=== PATIENT | female | born 1975 | race Caucasian/White ===

== ENCOUNTER → 2016-09-16 | Outpatient (CLI) | payer BC ==
[~2016-09-16] MED LIST: GLUC1CAP33 PO; LEVO25TA5 PO; OMEG10007 PO; SERT25TA PO; SERT50TA PO
== END | disposition home or self-care (01) ==
LOC: C.PAPS 11:26
PROVIDERS: ATTEND Obstetrics & Gynecology
DX: Z01.419 Encounter for gynecological examination (general) (routine) without abnormal findings (principal)

== ENCOUNTER → 2016-09-16 | Outpatient (CLI) | payer BC ==
[2016-09-16 09:43] LABS: BASO % 0.6 %; BASO ABS # 0.02 K/uL (0-0.2); COMPLETE YES; EOS % 4.2 %; HEMATOCRIT 43.2 % (37-47); LYMPH % 40.2 %; LYMPH ABS # 1.25 K/uL (1.2-3.4); MEAN CORPUSCULAR HEMOGLOBIN 31.3 pg (25-34); MEAN CORPUSCULAR HGB CONC 34.7 g/dl (32-36); MEAN PLATELET VOLUME 10.4 fL (7.4-10.4); MONO % 10.3 %; NEUT % 44.7 %; PLATELET COUNT 193 K/uL (130-400); WHITE BLOOD COUNT 3.11 K/uL (4.8-10.8)
[2016-09-16 10:05] LABS: ALKALINE PHOSPHATASE 84 U/L (45-117); ALT/SGPT 20 U/L (12-78); AST/SGOT 15 U/L (15-37); BLOOD UREA NITROGEN 16 mg/dl (7-18); BUN/CREATININE RATIO 17.2 (10-20); CALCIUM 8.5 mg/dl (8.5-10.1); CARBON DIOXIDE 29 mmol/L (21-32); CHLORIDE 108 mmol/L (98-107); CREATININE 0.91 mg/dl (0.60-1.20); GLUCOSE 88 mg/dl (70-99); HDL CHOLESTEROL 70 mg/dl; POTASSIUM 3.7 mmol/L (3.5-5.1); SODIUM 143 mmol/L (136-145)
[2016-09-16 10:16] LABS: ALB/GLOB RATIO 1.6 (0.9-2); CHOLESTEROL 167 mg/dl (0-200); CHOLESTEROL/HDL RATIO 2.4; LDL CHOLESTEROL CALCULATED 84 mg/dl; TRIGLYCERIDES 64 mg/dl (0-150); VERY LOW DENSITY LIPOPROT CALC 13 mg/dl
== END | disposition home or self-care (01) ==
LOC: C.LAB1850 07:16
PROVIDERS: ATTEND Internal Medicine
DX: R00.2 Palpitations (principal)

== ENCOUNTER → 2016-11-03 | Outpatient (CLI) | payer BC ==
[2016-11-03 17:34] LABS: BASO % 0.9 %; BASO ABS # 0.04 K/uL (0-0.2); COMPLETE YES; EOS % 2.6 %; IG% 0.2 %; LYMPH ABS # 1.77 K/uL (1.2-3.4); MEAN CELL VOLUME 91.5 fL (80-100); MEAN CORPUSCULAR HGB CONC 33.9 g/dl (32-36); MEAN PLATELET VOLUME 10.4 fL (7.4-10.4); MONO % 6.8 %; NEUT % 50.5 %; PLATELET COUNT 227 K/uL (130-400); RED BLOOD COUNT 4.81 M/uL (4.2-5.4); WHITE BLOOD COUNT 4.54 K/uL (4.8-10.8)
[2016-11-03 18:13] LABS: THYROID STIMULATING HORMONE 2.93 uIu/ml (0.300-4.500)
== END | disposition home or self-care (01) ==
LOC: C.LAB1850 16:09
PROVIDERS: ATTEND Internal Medicine
DX: D72.819 Decreased white blood cell count, unspecified (principal); E03.9 Hypothyroidism, unspecified

== ENCOUNTER → 2016-12-23 | Outpatient (CLI) | payer BC ==
--- NOTE | 2016-12-23 13:30 | MAMMOGRAPHY REPORT ---
BILATERAL DIGITAL SCREENING MAMMOGRAM TOMOSYNTHESIS WITH CAD: 12/23/2016 CLINICAL HISTORY: Routine screening. TECHNIQUE: Breast tomosynthesis in addition to standard 2D mammography was performed. Current study was also evaluated with a Computer Aided Detection (CAD) system. COMPARISON: Comparison is made to exams dated: 12/20/2015 mammogram, 12/15/2014 mammogram, 10/21/2013 m ammogram, and 02/20/2006 mammogram - [facility]. BREAST COMPOSITION: The tissue of both breasts is heterogeneously dense, which may obscure small mas ses. FINDINGS: The parenchymal pattern is similar to prior mammograms. No suspicious mass, architectural distortion or cluster of microcalcifications is seen. IMPRESSION: ACR BI-RADS CATEGORY 1: NEGATIVE There is no mammographic evidence of malignancy. A 1 year screening mammogram is recommended. The pa tient will receive written notification of the results. Approximately 10% of breast cancers are not detected with mammography. A negative mammographic report should not delay biopsy if a clinically suggestive mass is present. Kendal Velazquez M.D. ay/:12/23/2016 08:10:34 Polymerization Oven Operator: Vitor MONDRAGON(R)(M), [facility] letter sent: Normal 1/2 BI-RADS Code: ACR BI-RADS Category 1: Negative
== END | disposition home or self-care (01) ==
LOC: C.MAMM 07:24
PROVIDERS: ATTEND Obstetrics & Gynecology
DX: Z12.31 Encounter for screening mammogram for malignant neoplasm of breast (principal)

== ENCOUNTER → 2017-01-09 | Outpatient (CLI) | payer BC ==
[2017-01-09 10:43] LABS: THYROID STIMULATING HORMONE 1.29 uIu/ml (0.300-4.500)
== END | disposition home or self-care (01) ==
LOC: C.LAB 09:13
PROVIDERS: ATTEND Internal Medicine
DX: E03.9 Hypothyroidism, unspecified (principal)

== ENCOUNTER → 2017-01-24 | Outpatient (CLI) | payer BC ==
[2017-01-24 11:03] LABS: CHOLESTEROL/HDL RATIO 2.4
== END | disposition home or self-care (01) ==
LOC: C.LAB 08:35
PROVIDERS: ATTEND Internal Medicine
DX: Z13.220 Encounter for screening for lipoid disorders (principal); Z13.1 Encounter for screening for diabetes mellitus

== ENCOUNTER 2017-03-13 12:51 | Emergency (ER) | payer BC ==
[~2017-03-13] VITALS: Ht 172.7 cm; Wt 74.2 kg
[~2017-03-13 12:51] MED LIST changes: -GLUC1CAP33 PO; -LEVO25TA5 PO; -OMEG10007 PO; -SERT25TA PO
[2017-03-13 13:13] VITALS: TEMP 37.3; Ht 172.7 cm; Wt 74.2 kg
[2017-03-13] MEDS ORDERED: SODIUM CHLORIDE 0.9% 1000ML 1,000 ML IV STA ×2 (13:24)
[2017-03-13] MEDS ORDERED: LEVO25TA5 PO (13:52)
[2017-03-13] MEDS ORDERED: GLUC1CAP33 PO (13:52)
[2017-03-13] MEDS ORDERED: OMEG10007 PO (13:52)
[2017-03-13] MEDS ORDERED: SERT25TA PO (13:52)
[2017-03-13 14:04] LABS: EOS % 0.7 %; HEMATOCRIT 42.4 % (37-47); LYMPH % 23.8 %; MEAN CELL VOLUME 89.3 fL (80-100); MEAN CORPUSCULAR HEMOGLOBIN 30.5 pg (25-34); MEAN CORPUSCULAR HGB CONC 34.2 g/dl (32-36); MEAN PLATELET VOLUME 9.8 fL (7.4-10.4); MONO % 8.4 %; NEUT % 66.2 %; PLATELET COUNT 217 K/uL (130-400); RED BLOOD COUNT 4.75 M/uL (4.2-5.4); WHITE BLOOD COUNT 4.03 K/uL (4.8-10.8)
[2017-03-13 14:05] LABS: BASO % 0.7 %; BASO ABS # 0.03 K/uL (0-0.2); COMPLETE YES; IG% 0.2 %; LYMPH ABS # 0.96 K/uL (1.2-3.4)
[2017-03-13 14:13] LABS: INR 1.1 (0.9-1.1); PROTHROMBIN TIME (PATIENT) 11.5 SECONDS (9.0-12.0)
[2017-03-13 14:16] LABS: MANUAL MICROSCOPIC REQUIRED? YES; URINE APPEARANCE CLEAR (CLEAR); URINE BILIRUBIN NEG (NEG); URINE COLOR RED; URINE NITRITE NEG (NEG); URINE SPECIFIC GRAVITY <= 1.005 (1.000-1.030); UROBILINOGEN NEG (NEG)
[2017-03-13 14:18] LABS: REVIEW REQ? NO
[2017-03-13 14:22] LABS: BUN/CREATININE RATIO 14.7 (10-20); CALCIUM 8.7 mg/dl (8.5-10.1); CREATININE 0.73 mg/dl (0.60-1.20); POTASSIUM 3.6 mmol/L (3.5-5.1)
[2017-03-13 14:25] LABS: URINE BACTERIA NEG (NEG); URINE RBC >30 /hpf (0-4); URINE WBC 0 /hpf (0-5)
[2017-03-13 14:25] LABS: ALB/GLOB RATIO 1.7 (0.9-2)
[2017-03-13 14:34] LABS: PREG INTERNAL NEGATIVE QC NEG CLEAR BACKGROUND; PREG INTERNAL POSITIVE QC POS CONTROL LINE
--- NOTE | 2017-03-13 15:04 | DIAGNOSTIC IMAGING REPORT ---
PELVIC ULTRASOUND CLINICAL HISTORY: Heavy irregular menses. COMPARISON STUDY: None. TECHNIQUE: Transabdominal and transvaginal sonography of the pelvis was performed. FINDINGS: The uterus measures 10.7 x 4.6 x 6.2 cm. Endometrium measures 8 mm in thickness. A few nabothian cysts are noted. There are no significant uterine abnormalities. The right ovary measures 2.4 x 1.1 x 1.8 cm and the left measures 3.2 x 1.4 x 1.6 cm. Trace free fluid is likely physiologic. Color flow is identified within each ovary. IMPRESSION: 1. Unremarkable sonographic appearance of the uterus and ovaries. Endometrial thickness of 8 mm. 2. Trace fluid within the pelvis which is likely physiologic. Electronically signed by: Maximiliano Doty M.D. 03/13/2017 3:03 PM Dictated Date/Time: 03/13/2017 3:01 PM
--- NOTE | 2017-03-13 15:57 | EMERGENCY ROOM VISIT NOTE ---
ED Visit Note First contact with patient: 13:08 CHIEF COMPLAINT: Heavy vaginal bleeding times one day HISTORY OF PRESENT ILLNESS: Patient is a Ab1 41-year-old white female patient who presents the emergency department for heavy vaginal bleeding times one day. She has had irregular periods for the last 3-4 years. She has been followed by Dr. Yost for this. Patient actually reports going without a menstrual cycle for 4 months, and so she got a period in January. It started February 14, and that it is February 28. Flow was heavy, but manageable. Patient denies any significant pain or cramping with her menses. Patient reports that she got her period again 2 days ago. Today, the bleeding wasn't very brisk. She is wearing T a bump and a pad as backup. She states in the last 5-6 hours she has used 3 tampons and 5 pads. She is bleeding around the tampon, but not saturating a pad. She denies a significant pain. No lightheadedness or dizziness. No chest pain, palpitations or shortness of breath. She denies that she could be . She had been followed by her PCP, Dr. Olmedo, she had been feeling fatigued and was slightly hypothyroid. She started Synthroid 25 g daily in October. She did have some blood work recently, to check her thyroid functions, which were normal. Patient is not taking any aspirin or blood thinning medications. She has not tried using any ibuprofen. REVIEW OF SYSTEMS: Review of systems as per HPI. All other systems reviewed were negative. 10 systems reviewed. PMH: Electronic medical records are reviewed and summarized as above/below. See Problem List. SOCIAL HISTORY: Patient lives at home with her and children. Employed. Nonsmoker. PHYSICAL EXAM: Vital Signs: Reviewed Nurse's notes. CONSTITUTIONAL: Patient is a pleasant, well-appearing 41-year-old white female who is awake and alert and in no acute distress. EYES: Pupils equal, round, reactive to light and accommodation. EOMs intact without nystagmus. Sclera are anicteric. Conjunctivae are pink. ENT: Tympanic membranes intact, with normal landmarks. External canals are clear. Oral and nasopharynx are clear. Mucous membranes are moist, no lesions , tongue and gums appear normal. NECK: No bruits auscultated. Supple without lymphadenopathy. No thyromegaly. No meningeal signs. Full active range of motion without discomfort. CARDIOVASCULAR: Regular rate and rhythm, with normal S1 and S2, no murmur or gallop or rub is heard. No carotid bruits auscultated. No JVD. Peripheral pulses easily palpable. RESPIRATORY: Breath sounds equal and clear to auscultation without wheezes, rales, or rhonchi heard. Full and equal chest expansion without accessory muscle use or retractions. ABDOMEN: Bowel sounds are present. Abdomen is soft, nontender and nondistended. No guarding or rebound. No masses appreciated. INTEGUMENTARY: No lesions or rash, normal skin turgor. LYMPH: No lymphadenopathy. EMERGENCY DEPARTMENT COURSE: The patient was seen and evaluated as above. Her old records are reviewed. IV lock was initiated and she was hydrated with normal saline solution. CBC with differential, coags, CMP, urinalysis and qualitative hCG were performed. Pelvic ultrasound was obtained. Laboratory studies noted a normal H&H at 14 and 42, platelets and coags are normal. Electrolytes and liver functions are within normal limits. test is negative. Urinalysis shows blood only left, likely contamination from her menses. Pelvic ultrasound was obtained, findings are as noted below. All laboratory and diagnostic imaging studies were reviewed with the patient and her spouse, and discussed with Dr. Schulte. I did review the patient with Dr. Bundy with [facility]. Her recommendation was ibuprofen, and follow up with Dr. Yost in the office. She recommended against Aygestin taper at this time as the patient has never had an endometrial biopsy. This was discussed with the patient and she expressed understanding. Bleeding precautions were outlined. Patient was encouraged to contact [facility] if she has any worsening symptoms. 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 Differential diagnoses entertained included perimenopause, anemia, , ectopic , coagulopathy, mass or malignancy, among others. Medication reconciliation: I attest that I have personally reviewed the patient' s current medication list. Blood pressure screening : Patient was found to have normal blood pressure on screening and does not require follow-up. PELVIC ULTRASOUND CLINICAL HISTORY: Heavy irregular menses. COMPARISON STUDY: None. TECHNIQUE: Transabdominal and transvaginal sonography of the pelvis was performed. FINDINGS: The uterus measures 10.7 x 4.6 x 6.2 cm. Endometrium measures 8 mm in thickness. A few nabothian cysts are noted. There are no significant uterine abnormalities. The right ovary measures 2.4 x 1.1 x 1.8 cm and the left measures 3.2 x 1.4 x 1.6 cm. Trace free fluid is likely physiologic. Color flow is identified within each ovary. IMPRESSION: 1. Unremarkable sonographic appearance of the uterus and ovaries. Endometrial thickness of 8 mm. 2. Trace fluid within the pelvis which is likely physiologic. Problem List Medical Problems: (1) Anxiety State Nos Status: Chronic (2) Hypothyroidism, Unspecified Status: Chronic (3) Nonrheumatic Mitral (Valve) Prolapse Status: Chronic Current/Historical Medications Scheduled Fish Oil (Malden-3), 1 CAP PO DAILY Glucosamine-Chondroitin (Glucosamine & Chondroitin 500-400 mg), 1 CAP PO DAILY Levothyroxine Sodium (Levothyroxine Sodium), 1 TAB PO DAILY Sertraline (Zoloft), 25 MG PO DAILY Allergies Coded Allergies: No Known Allergies (Verified , 03/13/17) Vital Signs Date Time Temp Pulse Resp B/P (MAP) Pulse Ox O2 Delivery O2 Flow Rate FiO2 03/13/17 16:11 78 20 137/62 100 03/13/17 15:10 77 20 117/61 99 Room Air 03/13/17 13:13 37.3 76 20 148/86 100 Room Air 03/13/17 13:01 37.3 76 20 100 Room Air Laboratory Results 03/13/17 13:50 Red Blood Count 4.75, Mean Corpuscular Volume 89.3, Mean Corpuscular Hemoglobin 30.5, Mean Corpuscular Hemoglobin Concent 34.2, Mean Platelet Volume 9.8, Neutrophils (%) (Auto) 66.2, Lymphocytes (%) (Auto) 23.8, Monocytes (%) (Auto) 8.4, Eosinophils (%) (Auto) 0.7, Basophils (%) (Auto) 0.7, Neutrophils # (Auto) 2.66, Lymphocytes # (Auto) 0.96, Monocytes # (Auto) 0.34, Eosinophils # (Auto) 0.03, Basophils # (Auto) 0.03 03/13/17 13:50 Test 03/13/17 13:05 03/13/17 13:50 Urine Color RED Urine Appearance CLEAR (CLEAR) Urine pH 7.0 (4.5-7.5) Urine Specific [place] <= 1.005 (1.000-1.030) Urine Protein NEG (NEG) Urine Glucose (UA) NEG (NEG) Urine Ketones NEG (NEG) Urine Occult Blood 3+ (NEG) Urine Nitrite NEG (NEG) Urine Bilirubin NEG (NEG) Urine Urobilinogen NEG (NEG) Urine Leukocyte Esterase NEG (NEG) Urine RBC >30 /hpf (0-4) Urine WBC 0 /hpf (0-5) Urine Epithelial Cells 0-5 /lpf (0-5) Urine Bacteria NEG (NEG) White Blood Count 4.03 K/uL (4.8-10.8) Red Blood Count 4.75 M/uL (4.2-5.4) Hemoglobin 14.5 g/dL (12.0-16.0) Hematocrit 42.4 % (37-47) Mean Corpuscular Volume 89.3 fL (80-100) Mean Corpuscular Hemoglobin 30.5 pg (25-34) Mean Corpuscular Hemoglobin Concent 34.2 g/dl (32-36) Platelet Count 217 K/uL (130-400) Mean Platelet Volume 9.8 fL (7.4-10.4) Neutrophils (%) (Auto) 66.2 % Lymphocytes (%) (Auto) 23.8 % Monocytes (%) (Auto) 8.4 % Eosinophils (%) (Auto) 0.7 % Basophils (%) (Auto) 0.7 % Neutrophils # (Auto) 2.66 K/uL (1.4-6.5) Lymphocytes # (Auto) 0.96 K/uL (1.2-3.4) Monocytes # (Auto) 0.34 K/uL (0.11-0.59) Eosinophils # (Auto) 0.03 K/uL (0-0.5) Basophils # (Auto) 0.03 K/uL (0-0.2) RDW Standard Deviation 42.3 fL (36.4-46.3) RDW Coefficient of Variation 12.9 % (11.5-14.5) Immature Granulocyte % (Auto) 0.2 % Immature Granulocyte # (Auto) 0.01 K/uL (0.00-0.02) Prothrombin Time 11.5 SECONDS (9.0-12.0) Prothromb Time International Ratio 1.1 (0.9-1.1) Activated Partial Thromboplast Time 26.8 SECONDS (21.0-31.0) Partial Thromboplastin Ratio 1.0 Anion Gap 8.0 mmol/L (3-11) Est Creatinine Clear Calc Drug Dose 100.2 ml/min Estimated GFR () 116.9 Estimated GFR (Non- 100.9 BUN/Creatinine Ratio 14.7 (10-20) Calcium Level 8.7 mg/dl (8.5-10.1) Total Bilirubin 0.4 mg/dl (0.2-1) Aspartate Amino Transf (AST/SGOT) 10 U/L (15-37) Alanine Aminotransferase (ALT/SGPT) 14 U/L (12-78) Alkaline Phosphatase 80 U/L (45-117) Total Protein 6.7 gm/dl (6.4-8.2) Albumin 4.2 gm/dl (3.4-5.0) Globulin 2.5 gm/dl (2.5-4.0) Albumin/Globulin Ratio 1.7 (0.9-2) Human Chorionic Gonadotropin, Qual NEG (NEG) Medications Administered Medications (Trade) Dose Ordered Sig/Bibiana Route Start Time Stop Time Status Last Admin Dose Admin Sodium Chloride 1,000 ml @ 999 mls/hr Q1H1M STAT IV 03/13/17 13:24 03/13/17 14:24 DC 03/13/17 13:58 999 MLS/HR Sodium Chloride 1,000 ml @ 250 mls/hr Q4H STAT IV 03/13/17 13:24 03/13/17 16:32 DC 03/13/17 13:58 250 MLS/HR Departure Information Impression Primary Impression: Vaginal bleeding Referrals Gene Olmedo M.D. (PCP) Patient Instructions My [facility] Additional Instructions Ibuprofen(Motrin, Advil) may be used for fever or pain. Use 600mg every six hours as needed. Take with food. Avoid using more than 2400mg in a 24 hour period. Do not use 2400mg per day for more than three consecutive days without physician direction. Prolonged inappropriate use can lead to stomach upset or ulcers. (AND/OR) Acetaminophen(Tylenol) may be used for fever or pain. Use 1000mg every six hours as needed. Avoid using more than 3000mg in a 24 hour period. Activity as tolerated. Drink plenty of fluids. Diet as tolerated. Follow up with [facility] next week. Return to the ED for worsening pain, heavier bleeding (soaking a pad in less than an hour, passing clots larger than your fist), lightheadedness, dizziness, passing out, worsening of your condition or as needed.
[2017-03-13 16:11] VITALS: BP 137/62; PULSE 78; O2SAT 100
== END 2017-03-13 16:12 | disposition home or self-care (01) ==
LOC: C.EDB 12:52 → C.EDA 16:12
DX: N93.9 Abnormal uterine and vaginal bleeding, unspecified (principal); F41.9 Anxiety disorder, unspecified; E03.9 Hypothyroidism, unspecified; I34.1 Nonrheumatic mitral (valve) prolapse

== ENCOUNTER → 2017-04-10 | Outpatient (CLI) | payer BC ==
[~2017-04-10] MED LIST changes: +GLUC1CAP33 PO; +LEVO25TA5 PO; +OMEG10007 PO; +SERT25TA PO; -SERT50TA PO
== END | disposition home or self-care (01) ==
LOC: C.LAB1850 15:53
PROVIDERS: ATTEND Internal Medicine
DX: E03.9 Hypothyroidism, unspecified (principal)

== ENCOUNTER → 2017-04-28 | Outpatient (CLI) | payer BC | END | disposition home or self-care (01) | LOC: C.PATHSPEC 15:53 | PROVIDERS: ATTEND Obstetrics & Gynecology | DX: N92.6 Irregular menstruation, unspecified (principal) ==

== ENCOUNTER → 2017-09-18 | Outpatient (CLI) | payer OTHER ==
--- NOTE | 2017-09-18 10:07 | DIAGNOSTIC IMAGING REPORT ---
THYROID ULTRASONOGRAPHY CLINICAL HISTORY: Hypothyroidism COMPARISON STUDY: No previous studies for comparison. FINDINGS: The right lobe of thyroid measures 49 x 13 x 12 mm. Left lobe of thyroid measures 40 x 8 x 10 mm. No thyroid nodules are visualized. IMPRESSION: Normal thyroid ultrasonography. Electronically signed by: Bronson Pereira M.D. 09/18/2017 10:06 AM Dictated Date/Time: 09/18/2017 10:05 AM
--- NOTE | 2017-09-18 10:09 | DIAGNOSTIC IMAGING REPORT ---
GALLBLADDER-ABD LIMITED CLINICAL HISTORY: 42 years-old Female presenting with GALLBLADDER POLYPS;HYPOTHYROIDISM. TECHNIQUE: Real-time grayscale and limited color Doppler ultrasound imaging of the abdomen limited to the right upper quadrant was performed. COMPARISON: 10/12/2014. FINDINGS: Pancreas: Visualized portions of the pancreatic head and body normal. Liver: Normal echogenicity and echotexture. No sonographic evidence of hepatic mass. Biliary: No intrahepatic biliary ductal dilatation. Common bile duct measures up to 2 mm in diameter. Gallbladder: 2 mm hyperechogenic nonmobile focus along the gallbladder wall, likely cholesterol polyp. No evidence of gallstones, gallbladder wall thickening, gallbladder distention, or pericholecystic fluid or inflammatory change. Right kidney: Subcentimeter hyperechogenic focus in the right kidney, not visualized on the prior exam. This does not demonstrate posterior shadowing or drinking artifact. No hydronephrosis. Ascites: None. Other: None. IMPRESSION: 1. No cholelithiasis or biliary ductal dilatation. 2. Diminutive gallbladder cholesterol polyp. 3. Subcentimeter hyperechogenic focus in the kidney is indeterminate but may represent an angiomyolipoma. This was not visualized on the prior exam. Electronically signed by: Darion Smiley M.D. 09/18/2017 10:08 AM Dictated Date/Time: 09/18/2017 10:05 AM
== END | disposition home or self-care (01) ==
LOC: C.ULTRBC 09:12
PROVIDERS: ATTEND Internal Medicine
DX: K82.4 Cholesterolosis of gallbladder (principal); E03.9 Hypothyroidism, unspecified

== ENCOUNTER → 2017-09-18 | Outpatient (CLI) | payer OTHER ==
[2017-09-18 09:32] LABS: BASO % 0.6 %; BASO ABS # 0.02 K/uL (0-0.2); EOS % 2.9 %; HEMATOCRIT 43.9 % (37-47); LYMPH % 29.6 %; LYMPH ABS # 1.03 K/uL (1.2-3.4); MEAN CELL VOLUME 90.3 fL (80-100); MEAN CORPUSCULAR HEMOGLOBIN 30.9 pg (25-34); MEAN CORPUSCULAR HGB CONC 34.2 g/dl (32-36); MEAN PLATELET VOLUME 9.7 fL (7.4-10.4); MONO % 9.2 %; MONO ABS # 0.32 K/uL (0.11-0.59); NEUT % 57.7 %; NEUT ABS # 2.01 K/uL (1.4-6.5); PLATELET COUNT 211 K/uL (130-400); RED CELL DISTRIBUTION WIDTH SD 43.1 fL (36.4-46.3); WHITE BLOOD COUNT 3.48 K/uL (4.8-10.8)
== END | disposition home or self-care (01) ==
LOC: C.LAB1850 08:09
PROVIDERS: ATTEND Internal Medicine
DX: D72.819 Decreased white blood cell count, unspecified (principal); E03.9 Hypothyroidism, unspecified; Z13.1 Encounter for screening for diabetes mellitus; Z13.220 Encounter for screening for lipoid disorders

== ENCOUNTER → 2017-09-18 | Outpatient (CLI) | payer OTHER | END | disposition home or self-care (01) | LOC: C.PAPS 11:35 | PROVIDERS: ATTEND Obstetrics & Gynecology | DX: Z12.4 Encounter for screening for malignant neoplasm of cervix (principal) ==

== ENCOUNTER → 2017-09-18 | Outpatient (CLI) | payer OTHER | END | disposition home or self-care (01) | LOC: C.LABSPEC 10:55 | PROVIDERS: ATTEND Obstetrics & Gynecology | DX: N91.1 Secondary amenorrhea (principal) ==

== ENCOUNTER → 2018-01-18 | Outpatient (CLI) | payer OTHER ==
[2018-01-18 18:53] LABS: FOLLICLE STIMULAT HORMONE 35.8 IU/L
== END | disposition home or self-care (01) ==
LOC: C.LAB1850 16:09
PROVIDERS: ATTEND Obstetrics & Gynecology
DX: N92.6 Irregular menstruation, unspecified (principal)